=== PATIENT | female | born 1975 ===

== ENCOUNTER 2017-07-26 11:29 | Emergency (ER) | payer OTHER ==
--- NOTE | 2017-07-26 12:14 | RAD ---
LEFT FOOT 3 VIEWS: HISTORY: Hairline fracture of the left foot. Swelling and pain. COMPARISON: None. FINDINGS: Lisfranc alignment is maintained. Joint space is preserved. No fracture. No cortical irregularity or periosteal reaction. IMPRESSION: No fracture. If there is pain or point tenderness, consider additional imaging as warranted. POS: [id number]
[2017-07-26] MEDS ORDERED: Ketorolac Tromethamine 30 MG/ML VIAL ONE (13:40)
== END 2017-07-26 13:53 | disposition home or self-care (01) ==
LOC: EDSEX 11:29 → ERS 11:29
DX: S93.602A Unspecified sprain of left foot, initial encounter (principal); M41.9 Scoliosis, unspecified; G62.9 Polyneuropathy, unspecified; F41.9 Anxiety disorder, unspecified; F32.9 Major depressive disorder, single episode, unspecified; F17.210 Nicotine dependence, cigarettes, uncomplicated; Z79.899 Other long term (current) drug therapy; X58.XXXA Exposure to other specified factors, initial encounter; Y93.01 Activity, walking, marching and hiking
CPT/HCPCS: 96372; J1885